=== PATIENT | female | born 1970 | race Caucasian/White ===

== ENCOUNTER 2018-02-27 14:21 | Emergency (ER) | payer MEDICAID ==
[~2018-02-27] VITALS: Ht 160 cm; Wt 71.0 kg
[~2018-02-27 14:21] MED LIST: ALBU8HFA PO; BACL20TA PO; FLO110IN INH; FOLI1TAB16 PO; IBUP-1986 PO; LISI-600 PO; MULT-342 PO; ONDA4TAB6 PO; OXYC-658 PO; THI100T PO; TRAM50TA2 PO
[2018-02-27 15:19] LABS: BASOPHILS % (AUTO) 0.3 % (0-1); EOSINOPHILS # (AUTO) 0.4 X10'3 (0-0.9); EOSINOPHILS % (AUTO) 5.5 % (0-6); HEMATOCRIT 44.6 % (35.0-45.0); HEMOGLOBIN 15.1 g/dl (12.0-16.0); LYMPHOCYTES # (AUTO) 0.7 X10'3 (1.1-4.8); LYMPHOCYTES % (AUTO) 9.7 % (21-51); MEAN CORPUSCULAR HEMOGLOBIN 31.3 PG (27.0-31.0); MEAN CORPUSCULAR HGB CONC 33.9 % (33.0-36.5); MEAN CORPUSCULAR VOLUME 92.3 FL (78-98); MEAN PLATELET VOLUME 8.2 FL (7.4-10.4); MONOCYTES # (AUTO) 0.5 X10'3 (0-0.9); NEUTROPHILS # (AUTO) 5.7 X10'3 (1.8-7.7); NEUTROPHILS % (AUTO) 77.5 % (42-75); PLATELET COUNT 217 X10'3 (140-440); RED BLOOD COUNT 4.83 X10'6 (4.20-5.60); RED CELL DISTRIBUTION WIDTH 14.3 % (11.5-14.5); WHITE BLOOD COUNT 7.4 X10'3 (4.5-11.0)
[2018-02-27 15:26] LABS: CLARITY,URINE CLEAR (Clear); COLOR,URINE YELLOW (Yellow); GLUCOSE, URINE NEGATIVE (Neg); KETONES,URINE 40 mg/dl (Neg); LEUKOCYTE ESTERASE ,URINE NEGATIVE (Neg); NITRITES, URINE NEGATIVE (Neg); OCCULT BLOOD,URINE NEGATIVE (Neg); PROTEIN,URINE NEGATIVE (Neg); URINE HCG NEGATIVE (NEG); UROBILINOGEN,URINE 0.2 E.U/dL (0.2-1.0)
[2018-02-27 15:30] LABS: UA COLLECTION TYPE CLN CATCH MIDSTREAM
[2018-02-27] MEDS ORDERED: normal saline 1000ML IV soln IVB ONE (15:30)
[2018-02-27 15:36] LABS: ALANINE AMINOTRANSFERASE 60 U/L (12-78); ALBUMIN 3.9 G/DL (3.4-5.0); ALKALINE PHOSPHATASE 93 IU/L (46-116); ANION GAP 13 (8-16); ASPARTATE AMINO TRANSFERASE 39 U/L (10-37); BLOOD UREA NITROGEN 12 MG/DL (7-18); BUN/CREATININE RATIO 11.9 (6.6-38.0); CALCIUM 9.3 MG/DL (8.5-10.1); CHLORIDE 99 MMOL/L (99-107); CREATININE 1.01 MG/DL (0.40-0.90); GLUCOSE 137 MG/DL (70-104); LIPASE 135 U/L (73-393); POTASSIUM 3.9 MMOL/L (3.5-5.1); SODIUM 137 MMOL/L (135-145); TOTAL CARBON DIOXIDE 25.5 MMOL/L (24-32); TOTAL PROTEIN 7.8 G/DL (6.4-8.2); eGFR 59 ML/MIN
[2018-02-27 15:53] LABS: MAGNESIUM 1.9 MG/DL (1.5-2.4)
[2018-02-27 15:53] LABS: PARTIAL THROMBOPLASTIN TIME 27 SECONDS (22-32); PROTHROMBIN TIME 10.3 SECONDS (9.0-12.0)
[2018-02-27 17:53] VITALS: BP 161/88
[2018-02-27] MEDS ORDERED: ONDA4TAB9 SL (17:57)
== END 2018-02-27 18:25 | disposition home or self-care (01) ==
LOC: ER 14:21
DX: R10.32 Left lower quadrant pain (principal); R11.2 Nausea with vomiting, unspecified; J45.909 Unspecified asthma, uncomplicated; M19.90 Unspecified osteoarthritis, unspecified site; E11.9 Type 2 diabetes mellitus without complications; Z79.899 Other long term (current) drug therapy
CPT/HCPCS: 36415; 71045; 74176; 80053; 81003; 81025; 83605; 83690; 83735; 84145; 85025; 85610; 85730; 93005; 96360; 96361; 99285; J7030

== ENCOUNTER 2021-03-18 04:12 | Emergency (ER) | payer MEDICAID ==
[~2021-03-18] VITALS: Ht 160 cm; Wt 61.8 kg
[~2021-03-18 04:12] MED LIST changes: -LISI-600 PO; +LISI20TA28 PO
[2021-03-18 04:23] VITALS: BP 189/102
[2021-03-18] MEDS ORDERED: ondansetron 4mg rapidly disintigrating tab PO ONE (05:45)
[2021-03-18] MEDS ORDERED: naproxen 500mg tablet PO ONE (05:45)
[2021-03-18] MEDS ORDERED: sulfamethoxazole/trimethoprim DS (800/160mg) tablet PO ONE ×2 (05:45→06:00)
[2021-03-18] MEDS ORDERED: SULF1TAB49 PO (05:45)
[2021-03-18] MEDS ORDERED: naproxen 500mg tablet ONE (06:00)
[2021-03-18] MEDS ORDERED: ondansetron 4mg rapidly disintigrating tab ONE (06:00)
== END 2021-03-18 06:07 | disposition home or self-care (01) ==
LOC: ER 04:13
DX: L03.011 Cellulitis of right finger (principal); M79.644 Pain in right finger(s); J45.909 Unspecified asthma, uncomplicated; E11.9 Type 2 diabetes mellitus without complications; M19.90 Unspecified osteoarthritis, unspecified site; Z98.890 Other specified postprocedural states; Z79.2 Long term (current) use of antibiotics; Z79.899 Other long term (current) drug therapy
CPT/HCPCS: 26010; 99284